=== PATIENT | female | born 1980 | race Asian ===

== ENCOUNTER → 2024-03-15 | Outpatient (CLI) | payer OTHER, SELFPAY ==
--- NOTE | 2024-03-15 13:30 | XR_ITS ---
Examination: Breast ultrasound, unilateral, right complete Date and time of exam: March 15, 2024 1335 hours INDICATIONS: Mammogram January 09, 2024 4 mm focal asymmetry inferior right breast on the MLO view Technique: Real-time nguyen scale ultrasonographic imaging performed right breast including all 4 quadrants as well as nipple retroareolar and axillary region. Findings: 10:00 cyst 5 x 3 x 7 mm Retroareolar circumscribed oval mass 6 x 2 x 6 mm IMPRESSION: BI-RADS Category 3: Probably benign findings Recommend 1 additional 6 month right breast sonogram follow-up to document stability of retroareolar nodule described above
--- NOTE | 2024-03-15 14:00 | XR_ITS ---
Examination: Diagnostic digital mammography, unilateral, right Computer aided detection 3-D breast Tomosynthesis, unilateral Date and time of exam: March 15, 2024 1348 hours INDICATIONS: Outside mammogram 01/09/2024 4 mm focal asymmetry inferior right breast on the MLO view Technique: Nonmagnified MLO, CC views of the right breast have been obtained, reconstructed from 3-D Tomosynthesis images. R2 computer aided detection program utilized for evaluation of suspicious masses and/or abnormal calcifications. 3-D Tomosynthesis images obtained. Findings: Scattered areas of fibroglandular density No suspicious mass noted Impression: BI-RADS category 2: Benign findings Return to yearly follow-up mammography Please see the right breast sonogram report today requiring six-month right mammogram follow-up of retroareolar nodule
== END | disposition home or self-care (01) ==
LOC: CDIM 13:20
PROVIDERS: PCP Nurse Practitioner Family; Referring Provider Nurse Practitioner Family; Visit Provider Nurse Practitioner Family
DX: R92.321 Mammographic fibroglandular density, right breast (principal); N63.41 Unspecified lump in right breast, subareolar
CPT/HCPCS: 76641; 77061; 77065; G0279

== ENCOUNTER 2024-12-16 22:36 | Emergency (ER) | payer OTHER, SELFPAY ==
[2024-12-16 22:44] VITALS: BP 157/93; PULSE 84; RESP 18; TEMP 37.1; O2SAT 99
--- NOTE | 2024-12-17 | PD.EDANIML ---
ED Animal Bite RME/HPI General Chief Complaint: Animal Bite Stated Complaint: DOG BITE TO LEFT LEG Time Seen by Provider: 12/16/24 22:38 Source: patient Arrival date/time: 12/16/24 22:36 This is a case of 44-year-old female with no medical history came in in the emergency room due to laceration of the left thigh history of present illness started 1 hour prior to arrival in the emergency room patient was bitten by a dog on the left thigh sustaining the injury the dog rabies was up-to-date patient tetanus shot is not up-to-date no other injury noted Limitations: no limitations Related Data Home Medications ?Medication ?Instructions ?Recorded ?Confirmed Vitamin * 1 tab PO QDAY #0 tabs 07/11/15 folic acid PO QDAY ##0 07/11/15 Previous Rx's ?Medication ?Instructions ?Recorded Labetalol Hcl * (TRANDATE *) 100 mg PO BID #40 tabs 07/24/15 ibuprofen 600 mg tablet 600 mg PO Q8HR PRN PAIN #30 tabs 07/24/15 amoxicillin 875 mg-potassium 1 tab PO BID #20 tabs 12/16/24 clavulanate 125 mg tablet mupirocin 2 % topical ointment 1 applic topical BID #1 tube 12/16/24 Allergies Allergy/AdvReac Type Severity Reaction Status Date / Time No Known Allergies Allergy Verified 12/16/24 22:38 Review of Systems Review of Systems Systems Reviewed: All systems reviewed, normal except as documented Constitutional Constitutional: Reports system reviewed and no additional complaints, except as documented and Reports as per HPI Cardiovascular Cardiovascular: Reports system reviewed and no additional complaints, except as documented and Reports as per HPI Respiratory Respiratory: Reports system reviewed and no additional complaints, except as documented and Reports as per HPI Gastrointestinal Gastrointestinal: Reports system reviewed and no additional complaints, except as documented and Reports as per HPI Neurologic Neurologic: Reports system reviewed and no additional complaints, except as documented and Reports as per HPI Past Medical History Social History SMOKING STATUS: Never smoker ED Exam General Limitations: Present no limitations General appearance: Present alert, in no apparent distress and other (Patient is awake alert oriented not in distress nontoxic looking well-hydrated well-nourished) Head Head exam: Present atraumatic, normocephalic and normal inspection Eye Eye exam: Present normal appearance, PERRL and EOMI ENT ENT exam: Present normal exam, normal oropharynx and mucous membranes moist Neck Neck exam: Present normal inspection, full ROM and trachea midline; Absent tenderness, meningismus, lymphadenopathy or thyromegaly Chest Chest inspection: Present normal inspection and symmetric chest wall rise; Absent tenderness Respiratory Respiratory exam: Present normal lung sounds bilaterally; Absent respiratory distress, wheezes, stridor, accessory muscle use or prolonged expiratory phase Cardiovascular Cardiovascular exam: Present regular rate, normal rhythm and normal heart sounds; Absent bradycardia, tachycardia, irregular rhythm, systolic murmur or diastolic murmur Abdominal Exam Abdominal exam: Present soft and normal bowel sounds Extremities Exam Extremities exam: Present normal inspection and full ROM Expanded Lower Extremity Exam Hip/Pelvis exam: Present normal inspection and full ROM; Absent tenderness or swelling Upper leg exam: Present full ROM, tenderness (Mild tenderness on the left anterior thigh) and laceration (Laceration 6 cm flap no foreign body no tendon no muscle injury only involving skin and subcutaneous minimal bleeding ROM intact pulses were full and equal capillary refill less than 2 seconds sensory intact neurovascular intact); Absent swelling, abrasion, ecchymosis, deformity, crepitus, dislocation or erythema Knee exam: Present normal inspection and full ROM; Absent tenderness or swelling Lower leg exam: Present normal inspection and full ROM; Absent tenderness or swelling Ankle exam: Present normal inspection and full ROM; Absent tenderness or swelling Foot/toe exam: Present normal inspection and full ROM; Absent tenderness or swelling Back Exam Back exam: Present normal inspection and full ROM Neurological Exam Neurological exam: Present alert, oriented X3, CN II-XII intact, normal gait and reflexes normal; Absent motor sensory deficit Psychiatric Psychiatric exam: Present normal affect and normal mood Skin Skin exam: Present warm, dry, intact, normal color and other (Laceration on the left thigh) Course Quality Measures none Orders Category Date Time Status Amoxicillin/Pot Clav 875 [Augmentin 875] Med 12/16/24 23:57 Discontinued 1 tab PO X1 ONE TET,DIP/PERT AC (Adult)-Tdap [Boostrix Adult (Tdap) Med 12/16/24 23:57 Discontinued Vacc] 0.5 ml IMI .ONCE ONE Vital Signs Vital signs: Vital Signs Temperature 98.8 F 12/16/24 22:44 Pulse Rate 84 12/16/24 22:44 Respiratory Rate 18 12/16/24 22:44 Blood Pressure 157/93 H 12/16/24 22:44 Pulse Oximetry (%) 99 12/16/24 22:44 Oxygen Delivery Method Room Air 12/16/24 22:44 Oxygen saturation is 99% in room air PROCEDURES: Laceration Laceration 1: Site: other (Left thigh) Side (If applicable): left Description: flap Depth: simple, single layer Local Anesthetic: lidocaine 1% Amount of anesthesia used (mL): 6 Pre-repair: wound explored, irrigated extensively and deep structures intact Skin layer closed with: nylon Suture size (cm): 4-0 Number of sutures: 10 Technique: simple, interrupted Animal Bite MDM Narrative MDM Narrative:: This is a case of 44-year-old female with no medical history came in in the emergency room due to laceration of the left thigh history of present illness started 1 hour prior to arrival in the emergency room patient was bitten by a dog on the left thigh sustaining the injury the dog rabies was up-to-date patient tetanus shot is not up-to-date no other injury noted physical examination patient is awake alert oriented not in distress nontoxic looking well-hydrated well-nourished physical examination noted 6 cm flap laceration on the left thigh with involvement of the skin and subcutaneous no muscle injury no bone injury no tendon injury no foreign body minimal bleeding no abscess no cellulitis ROM intact neurovascular intact laceration repair was performed patient tolerated well the procedure procedure done by [place] protocol patient will follow-up with PCP in 2 days for reevaluation and wound check and removal of suture in 10 days for any worsening symptoms or any emergent concern or any signs and symptoms of infection patient is well informed to return in the emergency room immediately or call 911 patient was given Tdap here in the emergency room and Augmentin to prevent infection patient was prescribed Augmentin and mupirocin ointment Patient was discharged with comfortable condition walking with stable gait. Patient verbalized no further complains explained diagnosis and answered patient question. Patient is comfortable with the proposed management plan including the need to follow up with his/her primary care physician and any specialist if applicable Discussed patient for any urgent condition or worsening sx, He/She needed to go to emergency room immediately or call 911. Patient acknowledge the responsibility to follow up as instructed and to monitor her/his symptoms. For any persistence of the symptoms for more than 3-5 days return precaution advised. Discussed the result of the test and was given printed discharge instruction Patient data External records reviewed:: [facility] previous records Clinical information provided by:: patient Social determinants that could affect healthcare access:: none Patient has the following chronic illnesses:: None How is presenting disease/condition affected by chronic disease/condition?: no chronic disease Evaluation data The following diagnostics were reviewed and interpreted by me:: other (specify) (None) Lab and/or radiology exams considered but not ordered:: None Interpretation Summary: None Medications / Prescriptions Medications or Prescriptions considered but not ordered:: Given Medication administrations:: Medication Administration History Discontinued Medications Amoxicillin/Clavulanate Potassium (Amoxicillin/Pot Clav 875 Tablet) 1 tab PO X1 ONE Stop: 12/16/24 23:58 Last Admin: 12/17/24 00:24 Dose: 1 tab Documented By: GAVIN Diphtheria/Tetanus/Acell Pertussis (Diphth,Pertuss(Acell),Tet Vac 0.5 Ml Syr- Adult) 0.5 ml IMi .ONCE ONE Stop: 12/16/24 23:58 Last Admin: 12/17/24 00:24 Dose: 0.5 ml Documented By: GAVIN Given Consultations Consultation(s) initiated? (list below): No Diagnosis Differential diagnosis animal bite: dog bite Most likely diagnosis given after review of the tests above:: Thigh laceration secondary to dog bite Admission Indicated Admission indicated?: not indicated Explain why admission is indicated or not indicated:: Not indicated Admission Request Was there a request for admission?: No Disposition Plan Disposition Plan: Discharge Discharge Attestation Discharge Attestation: The patient and all family members were given an opportunity to ask questions and understood the discharge instructions. Discharge instructions specifically effects, indications for sooner follow up or return to the emergency department, and the expected course of current diagnosis. Patient condition: Stable Discharge Plan Plan Patient Disposition: HOME (Self Care) Patient condition on transfer: Stable Prescriptions/Referrals Prescriptions/Med Rec: New amoxicillin-pot clavulanate 875-125 mg tablet 1 tab PO BID Qty: 20 0RF mupirocin 2 % ointment 1 applic topical BID Qty: 1 0RF No Action Vitamin * 1 EACH tablet 1 tab PO QDAY Qty: 0 folic acid PO QDAY Qty: 0 ibuprofen 600 MG tablet 600 mg PO Q8HR PRN (Reason: PAIN) Qty: 30 0RF Labetalol Hcl * (TRANDATE *) 100 MG tablet 100 mg PO BID Qty: 40 1RF Problem List Clinical Impression: Dog bite, Laceration of left thigh Patient/Caregiver Discharge Instructions Education Materials: Suture Care, ED Dog Bite, ED Laceration: All Closures Additional Instructions: Follow-up with your primary care physician in 2 days for reevaluation and wound check and removal of suture in 10 days for any worsening symptoms or any emergent concerns such as redness swelling discharge by the wound pain fever chills return to the emergency room immediately or call 911 finish the course of antibiotic keep the wound clean and dry Print Language: Amharic Stand Alone Forms: Tasha Award Info., Patient Portal Info Letter PA/PEDIATRIC RN Supervising Physician PA/PEDIATRIC RN Supervising Physician: Dr. Anderson
[2024-12-17] MEDS: AMOXICILLIN/POT CLAV 875 TABLET 1 TAB PO (00:24)
[2024-12-17] MEDS: DIPHTH,PERTUSS(ACELL),TET VAC 0.5 ML SYR- ADULT IMi (00:24)
[2024-12-17 01:29] VITALS: RESP 18
== END 2024-12-17 01:30 | disposition home or self-care (01) ==
LOC: SERX 12-17 01:23
PROVIDERS: Emergency Provider Emergency Medicine; PCP Nurse Practitioner Family
DX: S71.112A Laceration without foreign body, left thigh, initial encounter (principal); W54.0XXA Bitten by dog, initial encounter; Z23 Encounter for immunization
CPT/HCPCS: 12002; 90471; 90715; 99282; A9270